=== PATIENT | male | born 1950 | race Caucasian/White ===

== ENCOUNTER 2016-06-28 06:07 | Inpatient (IN) ==
[2016-06-28] MEDS ORDERED: Albuterol 2.5 MG/3 ML NEBULIZER IH ONE (06:20)
[2016-06-28] MEDS ORDERED: Vancomycin 1,500 MG in D5% in Water 250 ML IVPB ONE ×2 (06:20→20:00)
[2016-06-28] MEDS ORDERED: CeFAZolin Pre 2,000 MG/100 ML 2,000 MG/100 ML BAG IVPB ONE (06:20)
[2016-06-28] MEDS ORDERED: Ringers Solution, Lactated 1,000 ML IVC SCH (06:30)
[2016-06-28] MEDS ORDERED: Nitroglycerin 25 MG/250 ML INFUS..BTL IVC ONE (07:00)
--- NOTE | 2016-06-28 07:02 | Anesthesia Evaluation PreOp ---
Date of Encounter: 06/28/16 Time of Encounter: 07:00 - Past History Planned Operation: Right Carotid Endarterectomy Cardiac History: HTN, Hyperlipidemia Pulmonary History: Former smoker (quit 1 year ago, smoked for 40+ years), Snore PRINCIPAL ENGINEER History: Denies Any Significant HX Other Medical History: Renal (CKD), Diabetes Type II, Thyroid, GERD Anesthesia History: No Prior Anesthetic Complications, Past Anesthesia Alcohol Use: none Drug use: none Medications and Allergies Aspirin [Lo-Dose Aspirin EC] 81 mg PO DAILY 06/28/16 [History] Atorvastatin [Lipitor] 40 mg PO HS 06/28/16 [History] Citalopram [CeleXA] 20 mg PO DAILY 06/28/16 [History] Cyclobenzaprine [Flexeril] 10 mg PO TID 06/28/16 [History] Esomeprazole Magnesium [Nexium] 40 mg PO DAILY 06/28/16 [History] LORazepam [Lorazepam] 2 mg PO Q8H PRN 06/28/16 [History] Levothyroxine [Synthroid] 150 mcg PO DAILY 06/28/16 [History] Lisinopril [Zestril] 20 mg PO DAILY 06/28/16 [History] Metformin HCl [Glucophage] 1,000 mg PO BID 06/28/16 [History] Pioglitazone HCl [Actos] 30 mg PO DAILY 06/28/16 [History] Tramadol HCl [Ultram] 50 mg PO QID PRN 06/28/16 [History] glipiZIDE [Glipizide] 10 mg PO BID 06/28/16 [History] Allergies No Known Allergies Allergy (Verified 06/28/16 06:56) - Meds/Allergy Pre-op Review Medications Reviewed: Yes Allergies Reviewed: Yes Beta Blockers on Current Med List: No Anesthesia Results - Labs Laboratory Tests 06/25/16 06/25/16 06/25/16 12:52 12:52 12:52 WBC 6.2 Hgb 12.3 L Hct 36.5 L Plt Count 110 L PT 11.0 INR 1.0 APTT 27.5 Sodium 134 L Potassium 5.6 H BUN 29 H Creatinine 1.53 H - Imaging EKG: report reviewed (06/26/2016 SR) Anesthesia Exam O2 Sat Height 1.8 m Height 1.8 m Weight 102.058 kg Weight 102.058 kg O2 Sat by Pulse Oximetry 93 Vital Signs Temp Pulse Resp BP Pulse Ox 97.7 F 93 18 131/78 93 06/28/16 06:23 06/28/16 06:23 06/28/16 06:23 06/28/16 06:23 06/28/16 06:23 Blood glucose: 165 Height: 5'11'' Weight: 225 lbs NPO (# of Hours): 8 Pain Scale: 0 Pain Scale Used: Numeric (1 - 10) - HEENT Pupil (Motor): EOMI Mallampati: II Teeth: Normal Denture Type: Upper: Complete Oral Opening: Greater than 3 - PRINCIPAL ENGINEER LOC: Oriented PRINCIPAL ENGINEER Motor: Normal RUE, Normal LUE, Normal RLE, Normal LLE, Normal Face PRINCIPAL ENGINEER Sensory: Normal: RUE, LUE, Face, Deficit: RLE, LLE - Cardiac Rhythm: Regular Murmur: None - Pulmonary Breath Sounds: bilateral Clear Respiratory Effort: Symmetrical Anesthesia Assess/Plan ASA Score: 3 Modified [place] Scale for Level of Consciousness: Cooperative, oriented, and tranquil Anesthetic Plan: General Monitoring Plan: Standard Monitors, A-Line Recovery Plan: PACU
[2016-06-28] MEDS ORDERED: *HR* Propofol 200 MG/20 ML VIAL IVP ONE ×2 (07:03→10:26)
[2016-06-28] MEDS ORDERED: *HR* Succinylcholine 200 MG/10 ML VIAL IVP ONE (07:03)
[2016-06-28] MEDS ORDERED: *HR* Phenylephrine 10 MG/ML VIAL ONE (07:03)
[2016-06-28] MEDS ORDERED: Lidocaine -MPF 2% 2 ML VIAL ONE (07:03)
[2016-06-28] MEDS ORDERED: *HR* Remifentanil 1 MG VIAL IVP ONE ×2 (07:03)
[2016-06-28] MEDS ORDERED: *HR* Midazolam HCl 2 MG/2 ML VIAL ONE ×2 (07:03→08:08)
[2016-06-28] MEDS ORDERED: Lidocaine -MPF 4% 5 ML AMPUL ONE (07:03)
[2016-06-28] MEDS ORDERED: Heparin 1,000 UNITS/500 mL NS 0 ML ONE (07:03)
[2016-06-28] MEDS ORDERED: *HR* FentaNYL (PF) 100 MCG/2 ML VIAL ONE (07:03)
[2016-06-28] MEDS ORDERED: *HR* Rocuronium Bromide 50 MG/5 ML VIAL ONE (07:03)
[2016-06-28] MEDS ORDERED: Ondansetron 4 MG/2 ML VIAL ONE (07:03)
[2016-06-28] MEDS ORDERED: Dexamethasone 4 MG/ML VIAL ONE (07:03)
[2016-06-28] MEDS ORDERED: *HR* Heparin 5,000 UNIT/ML VIAL ONE (07:03)
[2016-06-28] MEDS ORDERED: Protamine Sulfate 50 MG/5 ML VIAL IVP ONE (07:12)
[2016-06-28] MEDS ORDERED: Heparin 1,000 UNITS/500 mL NS 500 ML ONE (07:13)
[2016-06-28] MEDS ORDERED: Vancomycin 1,000 MG VIAL ONE ×2 (07:13→07:17)
--- NOTE | 2016-06-28 07:31 | History & Physical Report ---
Date of Encounter: 06/28/16 Time of Encounter: 07:28 24 Hour HP Update - Instructions Instructions: If the History and Physical is less than 30 days old and was completed prior to A.M. admission and or procedure and has NOT been updated on calendar day of procedure please complete this update prior to performing procedure. - Update Patient reports changes in Medical Condition: No Changes in examination, assessment, or condition: No Changes in Medication: No Preop tests/diagnostics Reviewed: Yes Surgery Remains Indicated: Yes Consent for Planned Operative Procedure(s) Verified: Yes - Pre-Operative Checklist Preoperative Checklist Indicated: Yes Prophylactic Antibiotic Ordered: Yes (vancomycin due to MRSA risk) Home Medications Include Beta Manpreet: No Beta Manpreet Taken Today (Day of Surgery): No Beta Manpreet Taken Yesterday (Day Prior to Surgery): No Is VTE Prophylaxis Indicated?: Yes
[2016-06-28] MEDS ORDERED: *HR* Labetalol 100 MG/20 ML MDV IVP PRN (09:37)
[2016-06-28] MEDS ORDERED: Ondansetron 4 MG/2 ML VIAL IVP ONE (09:37)
[2016-06-28] MEDS ORDERED: *HR* HYDROmorphone (PF) 1 MG/ML SYRINGE IVP PRN (09:37)
[2016-06-28] MEDS ORDERED: *HR* HYDROmorphone 2 MG/ML SYRINGE ONE (09:47)
--- NOTE | 2016-06-28 10:59 | Operative Note ---
Date of procedure: 06/28/16 Pre-op diagnosis: >75% right internal carotid artery stenosis Post-op diagnosis: same Procedure: Right carotid endarterectomy with hemashield patch angioplasty Complications: None Anesthesia: GETA Surgeon: Davey Johnson Estimated blood loss (cc): 100 Specimen: Right carotid plaque Condition: stable Disposition: PACU Procedure in Detail: Indications: The patient is a 65 year old male who was found to have a >75% left internal carotid artery stenosis. Due to the irregular nature of the CT findings and the degree of stenosis, a left carotid endarterectomy was recommended to reduce his risk of cerebrovascular accident. Procedure: The patient was identified in the preoperative area. The risks, benefits, and alternatives of the procedure were discussed and all questions were answered. The patient was then taken to the operating room and placed in supine position on the operating table. After induction of general endotracheal anesthesia, the patient was cleaned and draped in normal sterile fashion. A longitudinal incision was made anterior to the right sternocleidomastoid muscle. Care was taken to avoid crossing his scar from his prior neck fusion. Hemostasis was obtained via electrocautery. Through a process of blunt, sharp, and electrocautery dissection, the platysma was traversed. The jugular vein was identified. The facial vein was clamped, divided, tied off with a 2-0 silk suture ligature. The jugular vein was retracted, exposing the carotid bifurcation. Patient received 2000 units of heparin intravenously at this time. Proximal dissection of the common and external carotid arteries were performed circumferentially. Dissection of the internal carotid was performed circumferentially. Vessels loops were passed around the internal and external carotid and an umbilical tape was passed from the common carotid artery. The patient received additional 3000 units of heparin intravenously. Additional heparin was given throughout the case to maintain adequate anticoagulation. After waiting adequate time for it to circulate, the vessels were occluded and a longitudinal arteriotomy was made into the common carotid artery extending into the internal carotid beyond the plaque. Vigorous pulsatile retrograde flow was noted from the internal carotid artery upon release of the loop; therefore, no shunt was placed. A dental [place] was used to perform a standard endarterectomy. Proximal and distal endpoints were inspected. No elevated flaps were noted. A Hemashield patch was cut to fit the defect and sutured in place with running 6 -0 Prolene. Prior to completing the closure, each vessel was flushed and then reoccluded. Heparinized saline was infused into the lumen. The patch was completed. Flow was restored in the external carotid artery, followed the common carotid artery, lastly the internal carotid artery was opened. A low resistance arterialized signal was present within the internal carotid artery beyond the patch. Thrombin and Gelfoam were used to aid in hemostasis. Meticulous hemostasis was obtained throughout the wound with electrocautery. Platelet rich and platelet poor plasma were infused into the wounds. The sternocleidomastoid was reapproximated with interrupted 3-0 Vicryl. Platelet rich and platelet poor plasma were infused into the wound. A TLS drain was brought through a separate stab incision and sutured in place with 0 silk suture. The platysma was reapproximated with running 3-0 Vicryl. Local anesthetic was infused in the skin. A 3-0 Monocryl was used to reapproximate the skin. Sterile dressing was applied. The patient was extubated, taken to the recovery room in stable condition.
--- NOTE | 2016-06-28 12:16 | Anesthesia Evaluation Post Op ---
Date of Encounter: 06/28/16 Time of Encounter: 12:16 - Vital Signs Vital Signs: Vital Signs/O2 Sat, Most Current Temp Pulse Resp BP Pulse Ox 97.0 F L 74 18 97/48 94 06/28/16 11:55 06/28/16 11:55 06/28/16 11:55 06/28/16 11:55 06/28/16 11:55 - Lungs Lungs: Clear Ascult./Percussion - Airway Airway: Non-obstructed - Cardiovascular Regular Rate - Mental Status Mental Status: Alert & Oriented, Answers Appropriately - Pain Pain Scale: 5 Pain Scale used: Numeric (1 - 10) - Nausea Vomiting Nausea Vomiting: Not Present - Hydration Hydration: Ice chips, Stephens catheter - Discharge PostOp Status: Transfer Patient to floor
[2016-06-28] MEDS ORDERED: Dextrose Gel 15 GM PO PRN ×2 (12:55)
[2016-06-28] MEDS ORDERED: *HR* Dextrose 50 % in Water (Syg) 50 ML SYRINGE IVP PRN (12:55)
[2016-06-28] MEDS ORDERED: Acetaminophen 325 MG TABLET PO PRN (12:55)
[2016-06-28] MEDS ORDERED: Naloxone 0.4 MG/ML INJ IVP PRN (12:55)
[2016-06-28] MEDS ORDERED: *HR* HYDROcodone/Acet 5/325 mg TABLET PO PRN (12:55)
[2016-06-28] MEDS ORDERED: Ondansetron 4 MG/2 ML VIAL IVP PRN (12:55)
[2016-06-28] MEDS ORDERED: *HR* Morphine 2 MG/ML SYRINGE IVP PRN (12:55)
[2016-06-28] MEDS ORDERED: D5% in Water 1,000 ML IVC PRN (12:55)
[2016-06-28] MEDS ORDERED: *HR* Labetalol 20 MG/4 ML SYRINGE IVP PRN (12:55)
[2016-06-28] MEDS ORDERED: 0.9 % Sodium Chloride 500 ML IVC ONE (13:06)
[2016-06-28] MEDS ORDERED: 0.9 % Sodium Chloride 1,000 ML ONE (13:09)
[2016-06-28] MEDS: *HR* Metoprolol 5 MG/5 ML VIAL IVP SCH ×3 (13:38→23:37)
[2016-06-28] MEDS: Insulin LISPRO 300 UNITS/3 ML VIAL SQ SCH ×2 (13:41→17:04)
[2016-06-28] MEDS: 0.9 % Sodium Chloride 1,000 ML IVC SCH ×2 (13:42→22:30)
[2016-06-28] MEDS: *HR* OxyCODONE Immed Rel 5 MG TABLET PO PRN ×2 (13:45→20:16)
[2016-06-28] MEDS: ceFAZolin 2,000 MG in D5% in Water 100 ML IVPB SCH ×2 (16:06→22:30)
[2016-06-28] MEDS: *HR* LORazepam 1 MG TABLET PO PRN (16:12)
[2016-06-28] MEDS ORDERED: *HR* Heparin 5,000 UNIT/ML VIAL SQ SCH (18:00)
[2016-06-28] MEDS ORDERED: Insulin LISPRO 300 UNITS/3 ML VIAL SQ SCH (21:00)
[2016-06-29] MEDS ORDERED: *HR* Heparin 5,000 UNIT/ML VIAL SQ SCH (06:00)
[2016-06-29] MEDS ORDERED: *HR* Heparin 5,000 UNIT/ML VIAL ONE (06:06)
[2016-06-29] MEDS: *HR* Metoprolol 5 MG/5 ML VIAL IVP SCH (06:09)
--- NOTE | 2016-06-29 06:51 | Discharge Summary ---
Date of Encounter: 06/29/16 Time of Encounter: 07:40 - Discharge Diagnosis (1) Carotid stenosis, bilateral Priority: Primary Status: Chronic Comments: The patient is postoperative day #1 after right carotid endarterectomy. His incision is healing well. He has no hematoma. He has no neurologic deficits. He will be discharged today in stable condition. (2) Type 2 diabetes mellitus with other circulatory complications Priority: Secondary Status: Chronic (3) Essential hypertension Priority: Secondary Status: Chronic Comments: He was counseled regarding atheorsclerotic risk factor reduction. (4) Mixed hyperlipidemia Priority: Secondary Status: Chronic (5) CKD stage 3 secondary to diabetes Priority: Secondary Status: Chronic (6) Chronic disease anemia Priority: Secondary Status: Chronic Comments: The patient was hemodynamically stable without evidence of ongoing blood loss. - Discharge Medications Prescriptions: OxyCODONE/APAP 5/325 [Percocet 5/325 MG] 1 each PO Q4HR PRN #30 tablet PRN Reason: POSTOPERATIVE PAIN Home Medications: Aspirin [Lo-Dose Aspirin EC] 81 mg PO DAILY 06/28/16 [History] Atorvastatin [Lipitor] 40 mg PO HS 06/28/16 [History] Citalopram [CeleXA] 20 mg PO DAILY 06/28/16 [History] Cyclobenzaprine [Flexeril] 10 mg PO TID 06/28/16 [History] Esomeprazole Magnesium [Nexium] 40 mg PO DAILY 06/28/16 [History] LORazepam [Lorazepam] 2 mg PO Q8H PRN 06/28/16 [History] Levothyroxine [Synthroid] 150 mcg PO DAILY 06/28/16 [History] Lisinopril [Zestril] 20 mg PO DAILY 06/28/16 [History] Metformin HCl [Glucophage] 1,000 mg PO BID 06/28/16 [History] Pioglitazone HCl [Actos] 30 mg PO DAILY 06/28/16 [History] Tramadol HCl [Ultram] 50 mg PO QID PRN 06/28/16 [History] glipiZIDE [Glipizide] 10 mg PO BID 06/28/16 [History] OxyCODONE/APAP 5/325 [Percocet 5/325 MG] 1 each PO Q4HR PRN #30 tablet 06/29/16 [Rx] Allergies/Adverse Reactions: Allergies No Known Allergies Allergy (Verified 06/28/16 06:56) Procedures/tests Complete & Pending: Procedures Performed prior 72 hours Category Date Time Status ECG 12 lead ECG [ECG] Stat Y 06/28/16 07:04 Stop Req Date of admission: 06/28/16 12:30 Primary care physician: Agustin Solano, Procedure(s) Performed: Right carotid endarterectomy Discharging clinician: Davey Johnson Anticipated date of discharge: 06/29/16 - Patient Status Disposition: Home, Self-Care Condition: Good Functional capacity at discharge: independent ambulation Overall status at discharge: patient is back to baseline - Discharge Instructions Instructions: Oxycodone/Acetaminophen (By mouth), Peripheral Vascular Disorders (DC), Surgical Site Infections (GEN) Follow Up With: Agustin Solano DO [Primary Care Provider] - 07/04/16 9:30 am Davey Johnson MD [Partnered Physician] - 07/18/16 3:40 pm Additional Instructions: MAY REMOVE BANDAGE 06/30/16. MAY SHOWER 06/30/16. WASH WOUND GENTLY AND PAT TO DRY. CALL DR. JOHNSON AT [phone] WITH QUESTIONS OR CONCERNS. - Diet and Activity Activity: increase activity as tolerated Diet: advance to your usual diet - Hospital Course Hospital course: Mr. Clark is a 65 year old male with a history of carotid stenosis. He was admitted on 06/28/16 and underwent a right carotid endarterectomy and tolerated the procedure well. On postoperative day #1 he was alert, comfortable and had no neurologic deficits. He was discharged to home in stable condition without complications. - Time Spent with Patient Total time spent providing and/or coordinating discharge services: Exam Vital Signs, Last 4 Hours Temp Pulse Resp BP Pulse Ox 06/29/16 04:45 66 06/29/16 04:19 97.9 F 74 17 95/54 93 General: Present: Conversant, No Apparent Distress HEENT: Present: Pupils equal Neck: Present: Other (incision clean, dry and intact without erythema or drainage, no hematoma). Absent: JVD, Tracheal deviation Cardiac: Present: Reg Rate and Rhythm Lungs: Present: Normal Breath Sounds Neuro: Present: Alert and responsive, No focal deficits noted, Motor nerves grossly intact, Sensory nerves grossly intact Abdomen: Present: Soft Vascular: Present: Normal capillary refill. Absent: Cyanosis, Edema Skin: Present: No rashes noted on visualized skin - VTE Documentation of Mechanical Device: Intermittent pneumatic compression device
[2016-06-29 07:19] VITALS: BP 94/56
[2016-06-29] MEDS: Insulin LISPRO 300 UNITS/3 ML VIAL SQ SCH (07:30)
[2016-06-29] MEDS ORDERED: *HR* Metformin 500 MG TABLET PO SCH (08:00)
[2016-06-29] MEDS ORDERED: *HR* GlipiZIDE 5 MG TABLET PO SCH (08:00)
[2016-06-29] MEDS: *HR* LORazepam 1 MG TABLET PO PRN (08:30)
[2016-06-29] MEDS ORDERED: *HR* Pioglitazone 30 MG TABLET PO SCH (09:00)
[2016-06-29] MEDS ORDERED: Aspirin Enteric Coated 81 MG Tablet PO SCH (09:00)
[2016-06-29] MEDS ORDERED: Lisinopril 20 MG TABLET PO SCH (09:00)
== END 2016-06-29 10:25 | disposition home or self-care (01) | DRG 39 ==
LOC: SAMDAY 06:07 → 2NNU 12:30
PROVIDERS: ADMIT Surgery; ATTEND Surgery